=== PATIENT | male | born 1940 | race Caucasian/White ===

== ENCOUNTER 2019-05-29 08:56 | Inpatient (IN) | payer MEDICARE ==
[2019-05-29] VITALS (14 sets, daily range): BP systolic 87–132; BP diastolic 47–81
[~2019-05-29] VITALS: Ht 185.4 cm; Wt 111.1 kg
[2019-05-29 09:32] LABS: BASOPHILS # (AUTO) 0.2 X10'3 (0-0.2); BASOPHILS % (AUTO) 0.7 % (0-1); EOSINOPHILS % (AUTO) 0.1 % (0-6); HEMATOCRIT 40.6 % (42.0-52.0); HEMOGLOBIN 13.7 g/dl (14.0-17.9); LYMPHOCYTES # (AUTO) 0.3 X10'3 (1.1-4.8); LYMPHOCYTES % (AUTO) 1.4 % (21-51); MEAN CORPUSCULAR HEMOGLOBIN 33.8 PG (27.0-31.0); MEAN CORPUSCULAR HGB CONC 33.6 g/dL (33.0-36.5); MEAN CORPUSCULAR VOLUME 100.6 FL (78-98); MEAN PLATELET VOLUME 8.5 FL (7.4-10.4); MONOCYTES # (AUTO) 0.6 X10'3 (0-0.9); MONOCYTES % (AUTO) 2.7 % (2-12); NEUTROPHILS # (AUTO) 21.9 X10'3 (1.8-7.7); NEUTROPHILS % (AUTO) 95.1 % (42-75); PLATELET COUNT 169 X10'3 (140-440); RED BLOOD COUNT 4.04 X10'6 (4.70-6.10); RED CELL DISTRIBUTION WIDTH 14.4 % (11.5-14.5)
[2019-05-29 09:57] LABS: ALANINE AMINOTRANSFERASE 49 U/L (12-78); ALBUMIN 2.6 G/DL (3.4-5.0); ALBUMIN/GLOBULIN RATIO 0.7 (1.1-1.5); ALKALINE PHOSPHATASE 117 IU/L (46-116); ANION GAP 8 (8-16); ASPARTATE AMINO TRANSFERASE 66 U/L (10-37); BILIRUBIN,TOTAL 2.1 MG/DL (0.1-1.0); BLOOD UREA NITROGEN 26 MG/DL (7-18); BUN/CREATININE RATIO 13.2 (5.4-32.0); CALCIUM 7.4 MG/DL (8.5-10.1); CHLORIDE 107 MMOL/L (99-107); CREATININE 1.97 MG/DL (0.60-1.10); GLUCOSE 109 MG/DL (70-104); MAGNESIUM 1.3 MG/DL (1.5-2.4); PHOSPHORUS 2.7 MG/DL (2.3-4.5); PLATELET ESTIMATE NORMAL; POTASSIUM 3.7 MMOL/L (3.5-5.1); SODIUM 138 MMOL/L (135-145); TOTAL CARBON DIOXIDE 22.8 MMOL/L (24-32); TOTAL CELLS COUNTED 100; TOTAL PROTEIN 6.2 G/DL (6.4-8.2); eGFR 33 ML/MIN
[2019-05-29 09:58] LABS: TOXIC GRANULATION 1+
[2019-05-29] MEDS ORDERED: normal saline 1000ml 1,000 ML IV ONE (10:20)
--- NOTE | 2019-05-29 10:27 | NUR ---
NO CHANGE, MAINTAINING BP ON LEVOPHED. DENIES PAIN. WAITING DR. STEELE.
[2019-05-29 10:31] LABS: CLARITY,URINE SLIGHTLY CLOUDY (Clear); COLOR,URINE YELLOW (Yellow); GLUCOSE, URINE NEGATIVE (Neg); KETONES,URINE NEGATIVE (Neg); LEUKOCYTE ESTERASE ,URINE MODERATE (Neg); NITRITES, URINE NEGATIVE (Neg); OCCULT BLOOD,URINE NEGATIVE (Neg); PH,URINE >=9.0 (4.8-8.0); PROTEIN,URINE TRACE mg/dl (Neg)
[2019-05-29 10:35] LABS: UA COLLECTION TYPE FOLEY CATH
[2019-05-29 10:37] LABS: BACTERIA,URINE 1+ /HPF (Neg); MUCUS STRANDS NONE SEEN /LPF (Neg); RBC,URINE NONE SEEN /HPF (0-2); SQUAMOUS EPITHELIAL CELL,UR NONE SEEN /LPF (FEW); WBC CLUMPS,URINE FEW /HPF (NEGATIVE); WBC,URINE 30-50 /HPF (0-4)
--- NOTE | 2019-05-29 11:16 | NUR ---
FAMILY AT BEDSIDE
--- NOTE | 2019-05-29 11:38 | NUR ---
DR. STEELE IN TO SEE PT FOR ADMIT
[2019-05-29] MEDS ORDERED: potassium Cl 20 mEq SR tablet PO PRN ×2 (11:45)
[2019-05-29] MEDS: K, MAG and/or Phos replacement - Verify level? MC SCH (11:45)
[2019-05-29] MEDS ORDERED: HYDR25TA4 PO (12:20)
[2019-05-29] MEDS ORDERED: ASPI-611 PO (12:20)
[2019-05-29] MEDS ORDERED: POTA20TA19 PO (12:20)
[2019-05-29] MEDS ORDERED: CARV-50 PO (12:20)
[2019-05-29] MEDS ORDERED: FURO20TA4 PO (12:20)
[2019-05-29] MEDS: levoFLOXACIN-Levaquin 500mg/D5 100 ML IV SCH (12:27)
[2019-05-29] MEDS: sodium chloride 0.45% 1,000 ML IV SCH ×2 (12:27→14:09)
--- NOTE | 2019-05-29 12:55 | NUR ---
pt here from er- awake and alert- npo for ct- abd.
[2019-05-29] MEDS: NORepinephrine 8mg/ 250ml NS 250 ML IV SCH ×2 (13:39→16:38)
[2019-05-29] MEDS ORDERED: diatrozoate meglu/diatrozoate sod (37% iodine) 120ML oral solution PO ONE (13:45)
[2019-05-29] MEDS ORDERED: diatr meglu/diatrizoate 30ml oral sol.-(3 dose) bottle PO ONE (13:45)
--- NOTE | 2019-05-29 15:53 | NUR ---
able to decrease levoped, family at bs. afebrile. gastroview given- awaiting ct/
[2019-05-29] MEDS ORDERED: pneumococcal 23-VAL P-sac vacc 25 mcg/0.5ml vial IMVAC ONE (18:20)
--- NOTE | 2019-05-29 18:35 | NUR ---
Patient in room ICU 2042. I have received report from Selene JAVIER, and had the opportunity to ask questions and assume patient care.
--- NOTE | 2019-05-29 19:15 | NUR ---
PT is sitting up in bed with no s/s of distress noted at this time. PT is receiving 1.5L of O2 to NC, tolerating well, O2 sat >96%. Levo is running @ 13mcg, PT tolerating well, VSS. Will attempt to titrate down as BP allows. PT is attempting to eat dinner but states he does not have much of an appetite. Arevalo in place draining to gravity. Bed is locked and low. Call light is within reach. Will continue to monitor.
--- NOTE | 2019-05-29 20:30 | NUR ---
CT results obtained, LUPIS Zaragoza called Dr. Rojas for surgical consult. Orders received for pre-op labs. They have been collected and sent down to lab. Will prep PT for surgery.
[2019-05-29 20:43] LABS: BASOPHILS % (AUTO) 0.1 % (0-1); EOSINOPHILS % (AUTO) 0 % (0-6); HEMOGLOBIN 13.4 g/dl (14.0-17.9); LYMPHOCYTES # (AUTO) 0.5 X10'3 (1.1-4.8); LYMPHOCYTES % (AUTO) 1.7 % (21-51); MEAN CORPUSCULAR HEMOGLOBIN 33.9 PG (27.0-31.0); MEAN CORPUSCULAR HGB CONC 33.5 g/dL (33.0-36.5); MEAN CORPUSCULAR VOLUME 101.4 FL (78-98); MEAN PLATELET VOLUME 9.1 FL (7.4-10.4); MONOCYTES # (AUTO) 1.7 X10'3 (0-0.9); MONOCYTES % (AUTO) 5.6 % (2-12); NEUTROPHILS # (AUTO) 27.6 X10'3 (1.8-7.7); NEUTROPHILS % (AUTO) 92.6 % (42-75); PLATELET COUNT 166 X10'3 (140-440); RED BLOOD COUNT 3.95 X10'6 (4.70-6.10); RED CELL DISTRIBUTION WIDTH 15.3 % (11.5-14.5)
[2019-05-29 20:47] LABS: WHITE BLOOD COUNT 29.8 X10'3 (4.5-11.0)
[2019-05-29 20:52] LABS: PARTIAL THROMBOPLASTIN TIME 35 SECONDS (22-32)
[2019-05-29 20:54] LABS: ALANINE AMINOTRANSFERASE 54 U/L (12-78); ALBUMIN 2.7 G/DL (3.4-5.0); ALBUMIN/GLOBULIN RATIO 0.7 (1.1-1.5); ALKALINE PHOSPHATASE 111 IU/L (46-116); ANION GAP 11 (8-16); ASPARTATE AMINO TRANSFERASE 64 U/L (10-37); BILIRUBIN,TOTAL 1.9 MG/DL (0.1-1.0); BLOOD UREA NITROGEN 30 MG/DL (7-18); BUN/CREATININE RATIO 14.9 (5.4-32.0); CALCIUM 7.3 MG/DL (8.5-10.1); CHLORIDE 103 MMOL/L (99-107); CREATININE 2.02 MG/DL (0.60-1.10); GLUCOSE 124 MG/DL (70-104); MAGNESIUM 1.5 MG/DL (1.5-2.4); PHOSPHORUS 4.5 MG/DL (2.3-4.5); POTASSIUM 4.1 MMOL/L (3.5-5.1); SODIUM 136 MMOL/L (135-145); TOTAL CARBON DIOXIDE 21.7 MMOL/L (24-32); TOTAL PROTEIN 6.6 G/DL (6.4-8.2); eGFR 32 ML/MIN
[2019-05-29] MEDS ORDERED: BUPIVAcaine/PF 2.5 mg/ml (0.25%) 30ml vial ONE (21:32)
[2019-05-29] MEDS ORDERED: LIDOcaine 1% (10mg/ml) 2ml vial ONE (21:34)
[2019-05-29] MEDS ORDERED: fentaNYL /PF 50mcg/ml 5ml ampule ONE (21:50)
[2019-05-29] MEDS ORDERED: midazolam 2 mg/2 ml injection ONE (21:50)
--- NOTE | 2019-05-29 21:50 | NUR ---
After consent was obtained, PT was taken to OR via ICU med and on transport monitor by OR crew.
[2019-05-29] MEDS ORDERED: NORepinephrine 8 MG in NS 250 ML BAG (32 mcg/ml) IV ONE (21:51)
[2019-05-29] MEDS ORDERED: sevoflurane 250ml liquid IH ONE (21:51)
[2019-05-29] MEDS ORDERED: rocuronium 10mg/ml inj IV ONE (21:52)
[2019-05-29] MEDS ORDERED: propofol inj 20 ML IV ONE (21:52)
[2019-05-29 21:58] LABS: TOTAL CELLS COUNTED 100
[2019-05-29 21:59] LABS: PLATELET ESTIMATE NORMAL; TOXIC GRANULATION 1+; TOXIC VACUOLATION FEW
[2019-05-29 22:00] LABS: POLYCHROMASIA FEW
[2019-05-29] MEDS ORDERED: ceFOXitin 2 GM ADDVANTGE BAG 50 ML IV ONE (22:12)
[2019-05-29] MEDS ORDERED: ringers solution, lacted 1,000 ML IV SCH (22:28)
[2019-05-29] MEDS ORDERED: ondansetron/PF 4mg/2ml inj IV PRN (22:30)
[2019-05-29] MEDS ORDERED: morphine 4 MG/ML inj SYRINge IV PRN ×2 (22:30)
[2019-05-29] MEDS ORDERED: FENTANYL-0.9 % NACL/PF 100 ML IV PRN (22:58)
[2019-05-29] MEDS ORDERED: midazolam 100mg in NS 100ml 100 ML IV PRN (22:58)
--- NOTE | 2019-05-29 23:30 | NUR ---
PT arrived from OR via ICU bed accompanied by OR crew. PT Intubated and placed on vent by RT. PT placed on bedside monitor. PT has A-Line to RT radial. Levo is currently running @ 4mcg/min, VSS. Sedation ordered and being started. 3 large bandages to incisions to lower ABD, all CDI. OG is to LIS. Arevalo remains in place and draining to gravity. Bed is locked and low. Bilat soft wrist restraints in place and secure. Will continue to monitor.
[2019-05-29 23:51] LABS: ABG BASE EXCESS -6.4 mmol/L (-2.0-3.0); ABG HCO3 20.1 mmol/L (22.0-26.0); ABG OXYGEN SATURATION 97.4 % (95-98); ABG PCO2 (T) 43.4 mmHg (35.0-45.0); ABG PH (T) 7.283 (7.350-7.450); ABG PO2 (T) 107.8 mmHg (83-108); FCOHb 0.7 % (0.5-1.5); FMetHb 0.2 % (0.3-1.12); FO2Hb 96.5 % (94-100); MINUTE VOLUME 8 L/min; PATIENT TEMPERATURE 36.8; PEEP 5 cm H2O; RESPIRATORY RATE 12 b/min; RESPIRATORY RATE (OBSERVED) 12 b/min; TIDAL VOLUME 600 mL; TOTAL HEMOGLOBIN 14.2 G/dl (14.0-17.9)
[2019-05-30] VITALS (26 sets, daily range): BP systolic 92–138; BP diastolic 44–77
[2019-05-30] MEDS: piperacillin/tazo 3.375gm/50ml 50 ML IV SCH ×3 (01:02→17:21)
[2019-05-30 01:40] LABS: BASOPHILS # (AUTO) 0.1 X10'3 (0-0.2); BASOPHILS % (AUTO) 0.3 % (0-1); EOSINOPHILS % (AUTO) 0 % (0-6); HEMATOCRIT 39.2 % (42.0-52.0); HEMOGLOBIN 13.3 g/dl (14.0-17.9); LYMPHOCYTES # (AUTO) 0.5 X10'3 (1.1-4.8); LYMPHOCYTES % (AUTO) 2.8 % (21-51); MEAN CORPUSCULAR HEMOGLOBIN 33.8 PG (27.0-31.0); MEAN CORPUSCULAR VOLUME 99.6 FL (78-98); MEAN PLATELET VOLUME 9.1 FL (7.4-10.4); MONOCYTES # (AUTO) 0.7 X10'3 (0-0.9); MONOCYTES % (AUTO) 3.8 % (2-12); NEUTROPHILS # (AUTO) 18.2 X10'3 (1.8-7.7); NEUTROPHILS % (AUTO) 93.1 % (42-75); PLATELET COUNT 156 X10'3 (140-440); RED BLOOD COUNT 3.94 X10'6 (4.70-6.10); RED CELL DISTRIBUTION WIDTH 15.1 % (11.5-14.5); WHITE BLOOD COUNT 19.6 X10'3 (4.5-11.0)
[2019-05-30 01:55] LABS: PARTIAL THROMBOPLASTIN TIME 36 SECONDS (22-32)
[2019-05-30 02:01] LABS: ALANINE AMINOTRANSFERASE 52 U/L (12-78); ALBUMIN 2.5 G/DL (3.4-5.0); ALBUMIN/GLOBULIN RATIO 0.6 (1.1-1.5); ALKALINE PHOSPHATASE 98 IU/L (46-116); ANION GAP 12 (8-16); ASPARTATE AMINO TRANSFERASE 60 U/L (10-37); BILIRUBIN,TOTAL 1.4 MG/DL (0.1-1.0); BLOOD UREA NITROGEN 33 MG/DL (7-18); BUN/CREATININE RATIO 15.6 (5.4-32.0); CALCIUM 7.2 MG/DL (8.5-10.1); CHLORIDE 105 MMOL/L (99-107); CREATININE 2.12 MG/DL (0.60-1.10); GLUCOSE 121 MG/DL (70-104); MAGNESIUM 1.5 MG/DL (1.5-2.4); PHOSPHORUS 4.6 MG/DL (2.3-4.5); POTASSIUM 4.2 MMOL/L (3.5-5.1); SODIUM 138 MMOL/L (135-145); TOTAL CARBON DIOXIDE 20.8 MMOL/L (24-32); TOTAL PROTEIN 6.4 G/DL (6.4-8.2); eGFR 30 ML/MIN
--- NOTE | 2019-05-30 03:00 | NUR ---
PT resting with no s/s of distress noted at this time. Bed is locked and low. Bilat soft wrist restraints in place and secure. Will continue to monitor.
[2019-05-30 03:21] LABS: TOTAL CELLS COUNTED 100
[2019-05-30 03:22] LABS: PLATELET ESTIMATE NORMAL
[2019-05-30 03:23] LABS: LARGE PLATELETS FEW; POLYCHROMASIA FEW; TOXIC GRANULATION 1+; TOXIC VACUOLATION 1+
[2019-05-30 04:15] LABS: ABG BASE EXCESS -5.4 mmol/L (-2.0-3.0); ABG HCO3 19.6 mmol/L (22.0-26.0); ABG OXYGEN SATURATION 96.2 % (95-98); ABG PCO2 (T) 35.9 mmHg (35.0-45.0); ABG PH (T) 7.352 (7.350-7.450); ABG PO2 (T) 84.5 mmHg (83-108); FCOHb 0.4 % (0.5-1.5); FMetHb 0.2 % (0.3-1.12); FO2Hb 95.6 % (94-100); MINUTE VOLUME 9 L/min; PATIENT TEMPERATURE 36.5; PEEP 5 cm H2O; RESPIRATORY RATE 14 b/min; RESPIRATORY RATE (OBSERVED) 14 b/min; TIDAL VOLUME 600 mL; TOTAL HEMOGLOBIN 13.8 G/dl (14.0-17.9)
--- NOTE | 2019-05-30 06:42 | NUR ---
Problems reprioritized. Patient report given, questions answered & plan of care reviewed with Marilyn and Art RN's.
--- NOTE | 2019-05-30 06:45 | NUR ---
Patient in room ICU 2042. I have received report from Tequila JAVIER and had the opportunity to ask questions and assume patient care.
[2019-05-30] MEDS: K, MAG and/or Phos replacement - Verify level? MC SCH (08:00)
[2019-05-30] MEDS ORDERED: FENTANYL-0.9 % NACL/PF 100 ML IV PRN (08:25)
[2019-05-30] MEDS ORDERED: midazolam 100mg in NS 100ml 100 ML IV PRN (08:25)
[2019-05-30] MEDS: enoxaparin 40mg/0.4ml syringe SUBCUT SCH (08:26)
[2019-05-30] MEDS: levoFLOXACIN-Levaquin 500mg/D5 100 ML IV SCH (08:26)
[2019-05-30] MEDS: NORepinephrine 8mg/ 250ml NS 250 ML IV SCH (08:27)
--- NOTE | 2019-05-30 10:02 | NUR ---
Cuff leak noted, Dr. Marie notified, RT evaluated parameters, parameters within safe range, pt tolerated extubation well, pt on NC, 2l, O2 97%
[2019-05-30] MEDS ORDERED: HYDROcodone/acetaminophen 5mg/325mg tablet PO PRN ×2 (10:05)
[2019-05-30] MEDS: methylnaltrexone br 12mg/0.6ml inj***SubQ only SQ SCH (13:51)
[2019-05-30] MEDS: sodium chloride 0.45% 1,000 ML IV SCH (14:21)
--- NOTE | 2019-05-30 14:56 | NUR ---
I have reviewed and agree with all medications administered and interventions performed by [facility] Student(WARD LAWTON)
[2019-05-30 15:35] LABS: ABG BASE EXCESS -3.3 mmol/L (-2.0-3.0); ABG OXYGEN SATURATION 95.8 % (95-98); ABG PCO2 (T) 40.3 mmHg (35.0-45.0); ABG PH (T) 7.355 (7.350-7.450); FCOHb 0.5 % (0.5-1.5); FLOW 2 L/min; FMetHb 0.1 % (0.3-1.12); FO2Hb 95.2 % (94-100); TOTAL HEMOGLOBIN 13.7 G/dl (14.0-17.9)
--- NOTE | 2019-05-30 15:44 | NUR ---
Pt work of breathing was markedly more difficult. RT obtained a blood gas. Dr. Marie came to the bedside to evaluate pt. Pt monitoring will continue
--- NOTE | 2019-05-30 18:30 | NUR ---
Patient in room ICU 2042. I have received report from Marilyn and Vasyl RN's, and had the opportunity to ask questions and assume patient care.
--- NOTE | 2019-05-30 19:30 | NUR ---
PT is resting in bed with no s/s of distress noted at this time. PT is receiving 2L of O2 to NC, tolerating well, O2 sat >95%. VSS. 2 visitors at bedside. PT is sleeping but wakes easily to answer questions. Arevalo in place draining to gravity. Bed is locked and low. Call light is within reach. Will continue to monitor.
[2019-05-30] MEDS: lactobacillus rhamnosus 10,000 MMU CELLS/CAPSULE PO SCH (20:50)
[2019-05-31] VITALS (24 sets, daily range): BP systolic 100–136; BP diastolic 50–78
[2019-05-31] MEDS: piperacillin/tazo 3.375gm/50ml 50 ML IV SCH ×3 (00:17→15:50)
[2019-05-31] MEDS ORDERED: mineral oil/petrolatum ophthal oint EACHEYE SCH (02:00)
[2019-05-31 02:24] LABS: BASOPHILS # (AUTO) 0.1 X10'3 (0-0.2); BASOPHILS % (AUTO) 0.4 % (0-1); EOSINOPHILS # (AUTO) 0.1 X10'3 (0-0.9); EOSINOPHILS % (AUTO) 0.8 % (0-6); HEMATOCRIT 36.8 % (42.0-52.0); HEMOGLOBIN 12.5 g/dl (14.0-17.9); LYMPHOCYTES # (AUTO) 0.6 X10'3 (1.1-4.8); LYMPHOCYTES % (AUTO) 4.5 % (21-51); MEAN CORPUSCULAR HEMOGLOBIN 33.9 PG (27.0-31.0); MEAN CORPUSCULAR HGB CONC 33.9 g/dL (33.0-36.5); MEAN CORPUSCULAR VOLUME 100.3 FL (78-98); MEAN PLATELET VOLUME 9.4 FL (7.4-10.4); MONOCYTES # (AUTO) 0.6 X10'3 (0-0.9); MONOCYTES % (AUTO) 4.8 % (2-12); NEUTROPHILS # (AUTO) 11.7 X10'3 (1.8-7.7); NEUTROPHILS % (AUTO) 89.5 % (42-75); PLATELET COUNT 136 X10'3 (140-440); RED BLOOD COUNT 3.67 X10'6 (4.70-6.10); RED CELL DISTRIBUTION WIDTH 15.1 % (11.5-14.5)
[2019-05-31 02:39] LABS: PARTIAL THROMBOPLASTIN TIME 33 SECONDS (22-32)
[2019-05-31 02:42] LABS: ALANINE AMINOTRANSFERASE 45 U/L (12-78); ALBUMIN 2.3 G/DL (3.4-5.0); ALBUMIN/GLOBULIN RATIO 0.6 (1.1-1.5); ALKALINE PHOSPHATASE 96 IU/L (46-116); ANION GAP 9 (8-16); ASPARTATE AMINO TRANSFERASE 43 U/L (10-37); BLOOD UREA NITROGEN 28 MG/DL (7-18); BUN/CREATININE RATIO 19.4 (5.4-32.0); CALCIUM 7.3 MG/DL (8.5-10.1); CHLORIDE 107 MMOL/L (99-107); CREATININE 1.44 MG/DL (0.60-1.10); GLUCOSE 79 MG/DL (70-104); MAGNESIUM 1.9 MG/DL (1.5-2.4); PHOSPHORUS 2.4 MG/DL (2.3-4.5); POTASSIUM 3.3 MMOL/L (3.5-5.1); SODIUM 140 MMOL/L (135-145); TOTAL CARBON DIOXIDE 23.9 MMOL/L (24-32); TOTAL PROTEIN 6.2 G/DL (6.4-8.2); eGFR 47 ML/MIN
[2019-05-31] MEDS: sodium chloride 0.45% 1,000 ML IV SCH ×2 (05:41→17:01)
--- NOTE | 2019-05-31 06:30 | NUR ---
Patient in room ICU 2042. I have received report from Tequila JAVIER and had the opportunity to ask questions and assume patient care.
--- NOTE | 2019-05-31 06:31 | NUR ---
Problems reprioritized. Patient report given, questions answered & plan of care reviewed with Guerline JAVIER.
[2019-05-31] MEDS ORDERED: levoFLOXACIN-Levaquin 750MG/D5 150 ML IV SCH (08:00)
[2019-05-31] MEDS: K, MAG and/or Phos replacement - Verify level? MC SCH (08:00)
[2019-05-31] MEDS: POTASSIUM BICARB 20meq eff tab 20 MEQ TABLET.EFF PO SCH ×3 (08:27→20:26)
[2019-05-31] MEDS: lactobacillus rhamnosus 10,000 MMU CELLS/CAPSULE PO SCH ×2 (08:27→20:26)
[2019-05-31] MEDS: enoxaparin 40mg/0.4ml syringe SUBCUT SCH (08:28)
--- NOTE | 2019-05-31 11:00 | NUR ---
Notified Dr. Marie that pt pulled out central line. was okay with pt not having central line access.
[2019-05-31] MEDS: NORepinephrine 8mg/ 250ml NS 250 ML IV SCH (12:55)
--- NOTE | 2019-05-31 18:30 | NUR ---
Patient in room ICU 2042. I have received report from Vinnie JAVIER and had the opportunity to ask questions and assume patient care.
--- NOTE | 2019-05-31 18:54 | NUR ---
Problems reprioritized. Patient report given, questions answered & plan of care reviewed with Inna JAVIER.
[2019-06-01] VITALS (23 sets, daily range): BP systolic 107–152; BP diastolic 45–92
[2019-06-01] MEDS: piperacillin/tazo 3.375gm/50ml 50 ML IV SCH ×3 (00:27→15:12)
[2019-06-01] MEDS: sodium chloride 0.45% 1,000 ML IV SCH ×2 (00:28→19:41)
[2019-06-01 05:54] LABS: BASOPHILS # (AUTO) 0.1 X10'3 (0-0.2); BASOPHILS % (AUTO) 0.6 % (0-1); EOSINOPHILS # (AUTO) 0.2 X10'3 (0-0.9); HEMOGLOBIN 13.1 g/dl (14.0-17.9); LYMPHOCYTES # (AUTO) 0.6 X10'3 (1.1-4.8); MEAN CORPUSCULAR HEMOGLOBIN 34.6 PG (27.0-31.0); MEAN CORPUSCULAR HGB CONC 34.4 g/dL (33.0-36.5); MEAN CORPUSCULAR VOLUME 100.4 FL (78-98); MEAN PLATELET VOLUME 8.4 FL (7.4-10.4); MONOCYTES # (AUTO) 0.6 X10'3 (0-0.9); MONOCYTES % (AUTO) 6.5 % (2-12); NEUTROPHILS # (AUTO) 8.1 X10'3 (1.8-7.7); NEUTROPHILS % (AUTO) 84.9 % (42-75); PLATELET COUNT 142 X10'3 (140-440); RED BLOOD COUNT 3.79 X10'6 (4.70-6.10); RED CELL DISTRIBUTION WIDTH 14.7 % (11.5-14.5); WHITE BLOOD COUNT 9.5 X10'3 (4.5-11.0)
[2019-06-01 06:24] LABS: ALANINE AMINOTRANSFERASE 36 U/L (12-78); ALBUMIN 2.3 G/DL (3.4-5.0); ALBUMIN/GLOBULIN RATIO 0.6 (1.1-1.5); ALKALINE PHOSPHATASE 139 IU/L (46-116); ANION GAP 6 (8-16); ASPARTATE AMINO TRANSFERASE 32 U/L (10-37); BILIRUBIN,TOTAL 1.2 MG/DL (0.1-1.0); BLOOD UREA NITROGEN 19 MG/DL (7-18); BUN/CREATININE RATIO 14.7 (5.4-32.0); CHLORIDE 107 MMOL/L (99-107); CREATININE 1.29 MG/DL (0.60-1.10); GLUCOSE 97 MG/DL (70-104); PHOSPHORUS 1.7 MG/DL (2.3-4.5); POTASSIUM 3.7 MMOL/L (3.5-5.1); SODIUM 141 MMOL/L (135-145); TOTAL CARBON DIOXIDE 27.9 MMOL/L (24-32); TOTAL PROTEIN 6.1 G/DL (6.4-8.2); eGFR 53 ML/MIN
--- NOTE | 2019-06-01 06:26 | NUR ---
Problems reprioritized. Patient report given, questions answered & plan of care reviewed with Jorge Alberto JAVIER.
[2019-06-01] MEDS: POTASSIUM BICARB 20meq eff tab 20 MEQ TABLET.EFF PO SCH ×3 (07:40→20:54)
[2019-06-01] MEDS: lactobacillus rhamnosus 10,000 MMU CELLS/CAPSULE PO SCH ×2 (07:41→20:54)
[2019-06-01] MEDS: enoxaparin 40mg/0.4ml syringe SUBCUT SCH (07:44)
[2019-06-01] MEDS: methylnaltrexone br 12mg/0.6ml inj***SubQ only SQ SCH (08:00)
[2019-06-01] MEDS: K, MAG and/or Phos replacement - Verify level? MC SCH (08:00)
[2019-06-01 12:57] LABS: PARTIAL THROMBOPLASTIN TIME 30 SECONDS (22-32)
--- NOTE | 2019-06-01 18:30 | NUR ---
Patient in room ICU 2042. I have received report from Jorge Alberto JAVIER and had the opportunity to ask questions and assume patient care.
[2019-06-02] VITALS (16 sets, daily range): BP systolic 117–144; BP diastolic 56–92
[2019-06-02] MEDS: piperacillin/tazo 3.375gm/50ml 50 ML IV SCH ×3 (01:10→16:17)
--- NOTE | 2019-06-02 03:12 | NUR ---
around 1999 the patient felt that he needed to urinate fo the first time since his catheter was pulled around 1200. he urinated 150mls. about 20 minutes later he felt like he had to urinate and went another 350ml. after this he was bladder scanned and was found to have 250ml still in his bladder. around 2299 the patient felt like he needed to urinate. he was unable to do so in bed. he was place on a bedside commode with a urinal and was still unable to urinate. he was bladder scanned and found to have 673ml in his bladder. July INTERN ARCHITECT was notified and she gave order to bladder scan for residual greater than 400ml. pt was straight cath'ed without difficulty. tolerated well. 500ml were removed from bladder. continue to monitor.
[2019-06-02 05:19] LABS: PARTIAL THROMBOPLASTIN TIME 28 SECONDS (22-32)
[2019-06-02 05:20] LABS: BASOPHILS # (AUTO) 0.1 X10'3 (0-0.2); BASOPHILS % (AUTO) 0.8 % (0-1); EOSINOPHILS # (AUTO) 0.2 X10'3 (0-0.9); EOSINOPHILS % (AUTO) 2.8 % (0-6); HEMATOCRIT 39.6 % (42.0-52.0); HEMOGLOBIN 13.6 g/dl (14.0-17.9); LYMPHOCYTES # (AUTO) 0.8 X10'3 (1.1-4.8); LYMPHOCYTES % (AUTO) 10.3 % (21-51); MEAN CORPUSCULAR HEMOGLOBIN 34.5 PG (27.0-31.0); MEAN CORPUSCULAR HGB CONC 34.5 g/dL (33.0-36.5); MEAN PLATELET VOLUME 8.7 FL (7.4-10.4); MONOCYTES # (AUTO) 0.8 X10'3 (0-0.9); MONOCYTES % (AUTO) 11.5 % (2-12); NEUTROPHILS # (AUTO) 5.5 X10'3 (1.8-7.7); NEUTROPHILS % (AUTO) 74.6 % (42-75); PLATELET COUNT 167 X10'3 (140-440); RED BLOOD COUNT 3.96 X10'6 (4.70-6.10); RED CELL DISTRIBUTION WIDTH 14.4 % (11.5-14.5); WHITE BLOOD COUNT 7.3 X10'3 (4.5-11.0)
[2019-06-02 05:26] LABS: ANION GAP 6 (8-16); BLOOD UREA NITROGEN 17 MG/DL (7-18); CHLORIDE 107 MMOL/L (99-107); CREATININE 1.06 MG/DL (0.60-1.10); GLUCOSE 99 MG/DL (70-104); POTASSIUM 3.9 MMOL/L (3.5-5.1); SODIUM 141 MMOL/L (135-145); TOTAL CARBON DIOXIDE 28.3 MMOL/L (24-32)
[2019-06-02 05:27] LABS: ALANINE AMINOTRANSFERASE 35 U/L (12-78); ALBUMIN 2.4 G/DL (3.4-5.0); ALBUMIN/GLOBULIN RATIO 0.6 (1.1-1.5); ALKALINE PHOSPHATASE 151 IU/L (46-116); ASPARTATE AMINO TRANSFERASE 30 U/L (10-37); CALCIUM 8.4 MG/DL (8.5-10.1); PHOSPHORUS 2.1 MG/DL (2.3-4.5); TOTAL PROTEIN 6.2 G/DL (6.4-8.2); eGFR 67 ML/MIN
--- NOTE | 2019-06-02 06:29 | NUR ---
Problems reprioritized. Patient report given, questions answered & plan of care reviewed with Winnie JAVIER.
--- NOTE | 2019-06-02 06:30 | NUR ---
Patient in room ICU 2042. I have received report from Humphrey Quijano and had the opportunity to ask questions and assume patient care. Patient laying in bed with eyes open, IV to R FA with TKO infusing, vital signs stable will continue to monitor
[2019-06-02] MEDS: K, MAG and/or Phos replacement - Verify level? MC SCH (08:00)
[2019-06-02] MEDS: lactobacillus rhamnosus 10,000 MMU CELLS/CAPSULE PO SCH ×2 (08:37→20:57)
[2019-06-02] MEDS: enoxaparin 40mg/0.4ml syringe SUBCUT SCH (08:37)
[2019-06-02] MEDS: POTASSIUM BICARB 20meq eff tab 20 MEQ TABLET.EFF PO SCH ×3 (08:37→20:58)
[2019-06-02] MEDS: sodium chloride 0.45% 1,000 ML IV SCH (09:01)
--- NOTE | 2019-06-02 15:24 | NUR ---
Problems reprioritized. Patient report given, questions answered & plan of care reviewed with Ana JAVIER on [facility]. Chart,1600 antibiotic, belongings consisting of clothes, shoes, watch, hearing aide, and cpap machine.
--- NOTE | 2019-06-02 18:11 | NUR ---
Problems reprioritized. Patient report given, questions answered & plan of care reviewed with Leslie JAVIER.
--- NOTE | 2019-06-02 18:30 | NUR ---
Patient in room [facility] 356. I have received report from UMANG JAVIER and had the opportunity to ask questions and assume patient care.
[2019-06-03] VITALS: BP 131/85
[2019-06-03] MEDS: piperacillin/tazo 3.375gm/50ml 50 ML IV SCH ×2 (00:30→07:47)
[2019-06-03 05:58] LABS: PARTIAL THROMBOPLASTIN TIME 28 SECONDS (22-32)
[2019-06-03 06:05] LABS: ALANINE AMINOTRANSFERASE 30 U/L (12-78); ALBUMIN 2.5 G/DL (3.4-5.0); ALBUMIN/GLOBULIN RATIO 0.6 (1.1-1.5); ALKALINE PHOSPHATASE 151 IU/L (46-116); ANION GAP 7 (8-16); ASPARTATE AMINO TRANSFERASE 30 U/L (10-37); BILIRUBIN,TOTAL 0.9 MG/DL (0.1-1.0); BLOOD UREA NITROGEN 19 MG/DL (7-18); BUN/CREATININE RATIO 16.4 (5.4-32.0); CALCIUM 8.6 MG/DL (8.5-10.1); CHLORIDE 106 MMOL/L (99-107); CREATININE 1.16 MG/DL (0.60-1.10); GLUCOSE 93 MG/DL (70-104); MAGNESIUM 1.8 MG/DL (1.5-2.4); PHOSPHORUS 2.8 MG/DL (2.3-4.5); SODIUM 140 MMOL/L (135-145); TOTAL CARBON DIOXIDE 27.1 MMOL/L (24-32); TOTAL PROTEIN 6.4 G/DL (6.4-8.2); eGFR 60 ML/MIN
[2019-06-03 06:08] LABS: BASOPHILS % (AUTO) 0.5 % (0-1); EOSINOPHILS # (AUTO) 0.2 X10'3 (0-0.9); EOSINOPHILS % (AUTO) 2.8 % (0-6); HEMATOCRIT 38.7 % (42.0-52.0); HEMOGLOBIN 13.5 g/dl (14.0-17.9); LYMPHOCYTES # (AUTO) 0.9 X10'3 (1.1-4.8); LYMPHOCYTES % (AUTO) 11.6 % (21-51); MEAN CORPUSCULAR HEMOGLOBIN 34.7 PG (27.0-31.0); MEAN CORPUSCULAR HGB CONC 34.9 g/dL (33.0-36.5); MEAN CORPUSCULAR VOLUME 99.5 FL (78-98); MEAN PLATELET VOLUME 8.7 FL (7.4-10.4); MONOCYTES # (AUTO) 1.1 X10'3 (0-0.9); MONOCYTES % (AUTO) 13.1 % (2-12); NEUTROPHILS # (AUTO) 5.8 X10'3 (1.8-7.7); PLATELET COUNT 194 X10'3 (140-440); RED BLOOD COUNT 3.89 X10'6 (4.70-6.10); RED CELL DISTRIBUTION WIDTH 14.9 % (11.5-14.5); WHITE BLOOD COUNT 8.1 X10'3 (4.5-11.0)
--- NOTE | 2019-06-03 06:30 | NUR ---
Patient report given, questions answered & plan of care reviewed with HESHAM JAVIER AND JUSTYNA JAVIER.
[2019-06-03 07:00] VITALS: BP 149/77
--- NOTE | 2019-06-03 07:03 | NUR ---
Patient in room [facility] 356. I have received report from YAYA Nelson and had the opportunity to ask questions and assume patient care.
[2019-06-03 07:07] LABS: PLATELET ESTIMATE NORMAL; TOTAL CELLS COUNTED 100
[2019-06-03 07:08] LABS: LARGE PLATELETS FEW; TOXIC GRANULATION 1+
--- NOTE | 2019-06-03 07:10 | NUR ---
Patient in room [facility] 356. I have received report from Sandip JAVIER and had the opportunity to ask questions and assume patient care.
[2019-06-03] MEDS: K, MAG and/or Phos replacement - Verify level? MC SCH (07:25)
[2019-06-03] MEDS: methylnaltrexone br 12mg/0.6ml inj***SubQ only SQ SCH (07:28)
--- NOTE | 2019-06-03 07:31 | NUR ---
Patient in room [facility] 356. I have received report from Keyonna Newby RN and had the opportunity to ask questions and assume patient care.
[2019-06-03] MEDS: lactobacillus rhamnosus 10,000 MMU CELLS/CAPSULE PO SCH (07:47)
[2019-06-03] MEDS: enoxaparin 40mg/0.4ml syringe SUBCUT SCH (07:51)
[2019-06-03] MEDS: POTASSIUM BICARB 20meq eff tab 20 MEQ TABLET.EFF PO SCH (07:58)
--- NOTE | 2019-06-03 10:50 | NUR ---
Initial: Pt admitted for urosepsis and appendicitis. Pt eating well post op laparoscopic appendectomy, PO intake 75-100% on a regular diet, meeting nutrient needs. Last BM 06/02. Skin intact aside from surgical wounds on abdomen; BLE edema +1. Will continue to follow. Recommendation: 1. Continue regular diet 2. Bowel care as needed 3. Weight per rx Addendum: 06/03/19 at [address] Amended: Links added.
--- NOTE | 2019-06-03 11:26 | NUR ---
Student Medication Administration: For this medication-pass time frame, all medication were reviewed, dispensed, administered and documented per hospital policy by Tyra pharmacy student.
--- NOTE | 2019-06-03 11:47 | NUR ---
Student documentation: I have reviewed and agree with all interventions, assessments performed and documented by Tyra, assistant director of nursing.
[2019-06-03 12:00] VITALS: BP 151/78
--- NOTE | 2019-06-03 12:30 | NUR ---
Problems reprioritized. Patient report given, questions answered & plan of care reviewed with Tyra nursing home aide.
--- NOTE | 2019-06-03 13:34 | NUR ---
Per Dr Guajardo patient is now on hospitalist service was only seen yesterday by Dr Guajardo because patient was still in the unit Dr Dyer aware
[2019-06-03] MEDS ORDERED: CARV6.253 PO (13:44)
[2019-06-03] MEDS ORDERED: AMOX-580 PO (13:44)
--- NOTE | 2019-06-03 14:55 | NUR ---
Patients discharge instructions reviewed with patient and son at bedside. All questions answered. Patient states he has all his belongings. Patients IV dc'd x2 cannula intact. Patients Tele dc'd for discharge. Patient taken via wheelchair to son's vehicle by auxillary. RX sent to [facility] in [place]
[2019-06-03] MEDS ORDERED: POTASSIUM BICARB 20meq eff tab 20 MEQ TABLET.EFF PO SCH (20:00)
== END 2019-06-03 14:55 | disposition home or self-care (01) | DRG 853 ==
LOC: ER 08:56 → ED HOLD 11:41 → ICU 2S 12:57 → SUR 3N 06-02 15:20
PROVIDERS: ADMIT Internal Medicine Critical Care Medicine; ATTEND Family Medicine
PROC: 3E0234Z Introduction of Serum, Toxoid and Vaccine into Muscle, Percutaneous Approach (ICD-10-PCS; 2019-05-29)
PROC: 0DTJ0ZZ Resection of Appendix, Open Approach (ICD-10-PCS; principal; 2019-05-30)
PROC: 5A09357 Assistance with Respiratory Ventilation, Less than 24 Consecutive Hours, Continuous Positive Airway Pressure (ICD-10-PCS; 2019-06-01)
DX: A41.9 Sepsis, unspecified organism (principal); K35.32 Acute appendicitis with perforation, localized peritonitis, and gangrene, without abscess; N17.0 Acute kidney failure with tubular necrosis; R57.9 Shock, unspecified; N39.0 Urinary tract infection, site not specified; N13.8 Other obstructive and reflux uropathy; I48.20 Chronic atrial fibrillation, unspecified; B96.4 Proteus (mirabilis) (morganii) as the cause of diseases classified elsewhere; E86.0 Dehydration; E66.9 Obesity, unspecified; G47.33 Obstructive sleep apnea (adult) (pediatric); N40.1 Benign prostatic hyperplasia with lower urinary tract symptoms; I10 Essential (primary) hypertension; I48.91 Unspecified atrial fibrillation; N41.9 Inflammatory disease of prostate, unspecified; Z79.899 Other long term (current) drug therapy; Z23 Encounter for immunization; Z68.32 Body mass index [BMI] 32.0-32.9, adult; Z79.82 Long term (current) use of aspirin
CPT/HCPCS: 36415; 36600; 71045; 74176; 80053; 81001; 82803; 82948; 83605; 83735; 84100; 84145; 84484; 85018; 85025; 85610; 85730; 86885; 86900; 86901; 87040; 87070; 87077; 87081; 87088; 87186; 88304; 90732; 93005; 94002; 94003; 94760; 96360; 97110; 97116; 97161; 97530; 99291; A4215; A4618; A7000; G0378; J0694; J1650; J1956; J2001; J2212; J2250; J2543; J2704; J3010; J3490; J7120; Q9963